=== PATIENT | male | born 2000 | race Caucasian/White ===

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

== ENCOUNTER 2023-12-04 09:43 | Emergency (ER) | payer OTHER, BC ==
[2023-12-04] MEDS: Acetaminophen 500 MG Tab PO ONE (11:06)
[2023-12-04] MEDS: Ondansetron 4 MG Tab.DIS PO ONE (11:07)
[2023-12-04] MEDS: Ibuprofen 800 MG Tab PO ONE (11:07)
== END 2023-12-04 13:19 | disposition home or self-care (01) ==
LOC: MW.ED 09:43
DX: S82.52XA Displaced fracture of medial malleolus of left tibia, initial encounter for closed fracture (principal); S82.832A Other fracture of upper and lower end of left fibula, initial encounter for closed fracture; Z75.8 Other problems related to medical facilities and other health care; W22.8XXA Striking against or struck by other objects, initial encounter; Y99.0 Civilian activity done for income or pay
CPT/HCPCS: 29515; 73610; 73630; 99283; A9270

== ENCOUNTER 2023-12-08 09:58 | Day surgery (SDC) | payer BC, OTHER ==
[~2023-12-08 09:58] MED LIST: Albuterol 0.083% 2.5 MG/3 ML Neb Soln NEB PRN; HYDROmorphone 1 MG/ML Syringe IVPUSH PRN; Metoclopramide 10 MG/2 ML SDV IVPUSH PRN; Morphine 2 MG/ML SYRINGE IVPUSH PRN; Naloxone 0.4 MG/ML SDV IVPUSH PRN; Ondansetron 4 MG/2 ML SDV IVPUSH PRN; ceFAZolin 2 GM in Sodium Chloride 0.9% 50 ML IV ONE; droPERidol 5 MG/2 ML SDV IVPUSH PRN; fentaNYL 50 MCG/ML SDV IVPUSH PRN
[2023-12-08] MEDS: Lactated Ringers 1,000 ML IV SCH (10:52)
[2023-12-08] MEDS ORDERED: Bupivacaine 0.5%/EPINEPHrine 1:200,000 30 ML SDV ONE (11:11)
[2023-12-08] MEDS ORDERED: fentaNYL 100 MCG/2 ML SDV ONE (11:33)
[2023-12-08] MEDS ORDERED: propofoL 0 ML ONE (11:33)
[2023-12-08] MEDS ORDERED: Propofol 200 MG/20 ML SDV ONE (11:34)
[2023-12-08] MEDS ORDERED: Lidocaine 2% 5 ML SDV ONE (11:35)
[2023-12-08] MEDS ORDERED: Ondansetron 4 MG/2 ML SDV ONE (11:35)
[2023-12-08] MEDS ORDERED: Midazolam 1 MG/ML 2 ML SDV ONE (11:35)
[2023-12-08] MEDS ORDERED: dexmedeTOMIDine HCl 200 MCG/2 ML SDV ONE (11:35)
[2023-12-08] MEDS ORDERED: Water For Injection, Sterile 20 ML ONE (11:36)
[2023-12-08] MEDS ORDERED: Bupivacaine 0.5% 30 ML SDV ONE (11:43)
[2023-12-08] MEDS ORDERED: Ketamine HCL/NACL, ISO-OSM 50 MG/5 ML Syringe ONE (12:22)
[2023-12-08] MEDS ORDERED: ceFAZolin 2 GM Vial ONE (12:26)
[2023-12-08] MEDS ORDERED: Dexamethasone 4 MG/ML 5 ML MDV ONE (12:26)
[2023-12-08] MEDS ORDERED: Ketorolac 30 MG/ML SDV ONE (14:02)
== END 2023-12-08 16:15 | disposition home or self-care (01) ==
LOC: MW.SDS 09:58
PROVIDERS: ATTEND Orthopaedic Surgery
DX: S82.842A Displaced bimalleolar fracture of left lower leg, initial encounter for closed fracture (principal); S93.432A Sprain of tibiofibular ligament of left ankle, initial encounter; E66.9 Obesity, unspecified; Z68.30 Body mass index [BMI] 30.0-30.9, adult; Z87.891 Personal history of nicotine dependence; Z79.899 Other long term (current) drug therapy
CPT/HCPCS: 27814; 27829; 64447; 64450; C1713; C1769; J0131; J0665; J0690; J1100; J1885; J2250; J2405; J2704; J3010; J7120; J3490

== ENCOUNTER 2024-03-08 10:11 | Day surgery (SDC) | payer BC, OTHER ==
[~2024-03-08 10:11] MED LIST changes: +Phenylephrine HCl In 0.9% NaCl 1 MG/10 ML Syringe IVPUSH PRN; -droPERidol 5 MG/2 ML SDV IVPUSH PRN
[2024-03-08] MEDS: Lactated Ringers 1,000 ML IV SCH (11:04)
[2024-03-08] MEDS ORDERED: dexmedeTOMIDine HCl 200 MCG/2 ML SDV ONE (11:48)
[2024-03-08] MEDS ORDERED: propofoL 500 MG/50 ML 50 ML ONE (11:50)
[2024-03-08] MEDS ORDERED: fentaNYL 100 MCG/2 ML SDV ONE (11:55)
[2024-03-08] MEDS ORDERED: Bupivacaine 0.5% 10 ML SDV ONE (11:58)
[2024-03-08] MEDS ORDERED: Lidocaine 2% 5 ML SDV ONE (11:58)
[2024-03-08] MEDS ORDERED: ceFAZolin 2 GM Vial ONE (13:38)
[2024-03-08] MEDS ORDERED: Ketorolac 30 MG/ML SDV ONE (13:50)
== END 2024-03-08 15:20 | disposition home or self-care (01) ==
LOC: MW.SDS 10:11
PROVIDERS: ATTEND Orthopaedic Surgery
DX: S93.432A Sprain of tibiofibular ligament of left ankle, initial encounter (principal); Z87.891 Personal history of nicotine dependence; X58.XXXA Exposure to other specified factors, initial encounter
CPT/HCPCS: 20680; 76000; J0665; J0690; J1885; J2704; J3010; J7120; J3490